=== PATIENT | male | born 1980 | race Caucasian/White ===

== ENCOUNTER 2017-03-01 10:19 | Day surgery (SDC) | payer OTHER ==
[2017-03-01 10:54] VITALS: BMI 26.6
[2017-03-01] MEDS ORDERED: Pantoprazole 40 mg EC Tab PO STA (12:23)
--- NOTE | 2017-03-01 12:23 | CP.SDSHP ---
Same Day Surgery H & P - History Proposed Procedure: EGD Pre-Op Diagnosis: SEE NOTES - Previous Medical/Surgical History Misc: Other Pain: 4.Moderate Pain - Allergies Allergies: Allergies No Known Allergies Allergy (Verified 03/01/17 10:54) - Physical Exam General Appearance: N Vital Signs: Vital Signs 03/01/17 10:35 Temperature 98.4 F Pulse Rate 88 Respiratory 19 Rate Blood Pressure 126/76 O2 Sat by Pulse 100 Oximetry Mental Status: Alert & Oriented x3 Neuro: WNL Heart: WNL Lungs: WNL GI: Other - {Optional Preform as Required} Breast: WNL Abdomen: Other Rectal: Other Integument: WNL : WNL Ortho: WNL ENT: WNL - Impression Pt. Evaluated Today:Candidate for Anesthesia & Procedure: Yes - Date & Time Time: 12:22 Short Stay Discharge - Short Stay Discharge Admitting Diagnosis/Reason for Visit: DYSPEPSIA Disposition: HOME/ ROUTINE
[2017-03-01] MEDS ORDERED: Propofol 10 mg/ml Inj (20 ML) ONE (12:24)
[2017-03-01 12:46] VITALS: O2SAT 99
[2017-03-01] MEDS ORDERED: Sucralfate 1 gm/10 ml Oral Susp UD PO ONE (12:50)
[2017-03-01] MEDS ORDERED: Belladonna-Phenobarbital PO ONE (13:05)
[2017-03-01 13:28] VITALS: TEMP 98.4
[2017-03-01 13:33] VITALS: BP 123/88; PULSE 73; RESP 16
== END 2017-03-01 13:30 | disposition home or self-care (01) ==
LOC: C.ENDO 10:19
PROVIDERS: ATTEND Specialist
DX: K29.50 Unspecified chronic gastritis without bleeding (principal); K26.9 Duodenal ulcer, unspecified as acute or chronic, without hemorrhage or perforation; K30 Functional dyspepsia
CPT/HCPCS: 43239; 88305; J2001; J2704